=== PATIENT | male | born 1950 | race Caucasian/White ===

== ENCOUNTER → 2017-03-09 | Outpatient (CLI) | payer OTHER ==
--- NOTE | 2017-03-09 14:40 | MAM ---
History: Bilateral breast asymmetry. DATE OF SERVICE: 03/09/2017 Services provided: Full field digital bilateral mammography. Directed bilateral breast sonography. FINDINGS: Baseline examination from 10/24/2016 is reviewed. Mammographically suspicious 2.9 cm mass left breast 1:00 is associated with architectural distortion and microcalcifications. Nodular asymmetry on the screening evaluation more peripherally becomes more subtle on the spot compression view where this area is visualized along the edge of the paddle. Right breast asymmetry partially effaces with a nodular breast parenchymal contour. No associated distortion. Microcalcifications are distributed diffusely throughout the right upper quadrant segment. Directed ultrasound exam bilaterally is performed. Sonography of the upper one half of the right breast tissue confirms normal fibroglandular changes. No sonographically suspicious finding. Palpable ridge left breast corresponds to a sonographically suspicious 3.3 x 2.8 cm angular mass with posterior acoustic shadowing. Internal microcalcifications are demonstrated with the sonographic lesion 2 cm from the nipple left breast 1:00. Medial and superior to the lesion is a second 8 mm nodule, left breast 12:00. Sonography of the left axilla demonstrates no abnormality. The periareolar breast also is sonographically unremarkable. IMPRESSION: Suspicious exam. Mammographically and sonographically suspicious 3.3 cm mass left breast with multifocal disease suspected. No sonographic or mammographic evidence for malignancy on the right. If prior films are obtained, an addendum report can be issued to document stability to the right breast. Recommendation: Ultrasound-guided needle sampling. The findings and recommendations were discussed with the patient. BIRAD CATEGORY: 5 HIGHLY SUSPICIOUS FINDINGS Electronically signed by: Qian Vaughan MD 03/09/2017 2:36 PM CDT
== END | disposition home or self-care (01) ==
LOC: MAMMO 13:00
PROVIDERS: ATTEND Family Medicine
DX: N63 Unspecified lump in breast (principal)

== ENCOUNTER → 2017-03-17 | Outpatient (CLI) | payer OTHER, SELFPAY ==
--- NOTE | 2017-03-17 11:33 | OP ---
DATE OF PROCEDURE: 03/17/17 PREOPERATIVE DIAGNOSIS: 1. Left breast mass times 2. POSTOPERATIVE DIAGNOSIS: 1. Left breast mass times 2. PROCEDURE: 1. Needle core biopsy of breast mass, 12 o'clock and 11 o'clock, left breast. SURGEON: Neil Martinez MD. INDUSTRIAL TECHNOLOGY EDUCATION TEACHER: None. ANESTHESIA: Local infiltration of 1% lidocaine. INDICATION: The patient is a 66-year-old female who on routine mammography was found to have a calcified irregular mass at 12 o'clock and another small mass at 11 o'clock. She was brought to the Ultrasound Suite today for needle core biopsy, sonographically guided, after the risks, benefits and alternatives to the procedure were discussed and accepted. FINDINGS: Multiple cores were taken from the larger mass at 12 o'clock. Three cores were taken from the mass at 11 o'clock. Pathology is pending. PROCEDURE: The patient was placed in the supine position with the left shoulder elevated with a pillow. The left arm was extended. The breast was examined with the ultrasound device. The lesions were identified. The breast lateral to the ultrasound probe was prepped with Betadine and draped. Local infiltration of anesthesia was obtained with 1% lidocaine. A stab wound was made with a 15 blade and then under ultrasound guidance, multiple passes were taken as noted with the specimens sent for pathologic evaluation. Hemostasis was obtained with pressure and a single suture of 4-0 Prolene. Sterile pressure dressing was applied. The patient tolerated the procedure well. Estimated blood loss was less than 5 mL. #[id number] [facility]
--- NOTE | 2017-03-17 17:11 | US ---
History: Left breast mass. Ultrasound-guided needle biopsy: A total of 13 images are submitted and demonstrate needle traversing the left breast mass at 12:00 in the left breast. No complication is shown on the images provided. The biopsy was performed by Dr. Martinez. IMPRESSION: Technically successful ultrasound-guided needle sampling left breast mass. Electronically signed by: Qian Vaughan MD 03/17/2017 5:11 PM CDT
== END | disposition home or self-care (01) ==
LOC: EDSEX 09:08 → US 09:08
PROVIDERS: ATTEND Surgery
DX: N63 Unspecified lump in breast (principal)

== ENCOUNTER → 2017-03-30 | Outpatient (CLI) | payer OTHER, SELFPAY ==
--- NOTE | 2017-03-30 11:39 | NM ---
EXAM DESCRIPTION: Bone Scan, Whole Body CLINICAL HISTORY: BREAST CANCER COMPARISON: None Available. RADIOPHARMACEUTICAL: 28 mCi technetium 99 M MDP IV FINDINGS: Mild abnormal increased uptake is observed in the shoulders thoracic spine and knees consistent with degenerative arthritis. Arthritic changes are also observed in the wrists and ankles. No abnormal increased uptake is seen to suggest bony metastatic disease. IMPRESSION: 1. Negative for metastatic disease. Electronically signed by: Fabio Sherman MD 03/30/2017 11:39 AM CDT
--- NOTE | 2017-03-30 15:35 | RAD ---
EXAM DESCRIPTION: Chest,2 Views CLINICAL HISTORY: 66 years Female, CARCINOMA LEFT BREAST COMPARISON: None Available TECHNIQUE: PA/lateral FINDINGS: There is no cardiac or pulmonary abnormality. The lungs are clear. There is no effusion. IMPRESSION: 1. Normal two-view chest. Electronically signed by: Fabio Sherman MD 03/30/2017 3:35 PM CDT
== END | disposition home or self-care (01) ==
LOC: NM 08:21
PROVIDERS: ATTEND Surgery
DX: C50.912 Malignant neoplasm of unspecified site of left female breast (principal)

== ENCOUNTER 2017-03-31 05:32 | Day surgery (SDC) | payer OTHER ==
[2017-03-31] MEDS ORDERED: ceFAZolin SODIUM 1 GM VIAL ONE (06:50)
[2017-03-31] MEDS ORDERED: SODIUM CHL 0.9% 100ML MINI-BAG 100 ML IVPB ONE (06:50)
[2017-03-31] MEDS ORDERED: LACTATED RINGERS 1,000 ML ONE (06:53)
[2017-03-31] MEDS ORDERED: LIDOCAINE 1% 10 ML VIAL INJ ONE (07:00)
[2017-03-31] MEDS ORDERED: PROPOFOL 200 MG/20 ML VIAL IV ONE (07:00)
[2017-03-31] MEDS ORDERED: SODIUM BICARBONATE VIAL 50 MEQ/50 ML VIAL ONE (08:09)
[2017-03-31] MEDS ORDERED: SODIUM CHLORIDE 0.9% 50 ML VIAL ONE (08:09)
[2017-03-31] MEDS ORDERED: HEPARIN SODIUM 100 U/ML 5 ML SYG IV ONE (08:09)
[2017-03-31] MEDS ORDERED: LIDOCAINE 1% 50 ML VIAL INJ ONE (08:09)
[2017-03-31] MEDS ORDERED: fentaNYL CITRATE INJ 50 MCG/ML AMP ONE (09:08)
--- NOTE | 2017-03-31 10:36 | RAD ---
EXAM DESCRIPTION: Chest,1 View CLINICAL HISTORY: s/p port placement FINDINGS/ IMPRESSION: Right subclavian Port-A-Cath placement distal tip in the superior vena cava. No pneumothorax or other complication Normal cardiomediastinal silhouette. The lungs are clear Electronically signed by: Joel Ignacio MD 03/31/2017 10:36 AM CDT
--- NOTE | 2017-03-31 10:37 | OP ---
DATE OF PROCEDURE: 03/31/17 PREOPERATIVE DIAGNOSIS: 1. Biopsy-proven carcinoma of the left breast. POSTOPERATIVE DIAGNOSIS: 1. Biopsy-proven carcinoma of the left breast. PROCEDURE: 1. Insertion of right subclavian venous access port using fluoroscopy. SURGEON: Neil Martinez MD TALENT DEVELOPMENT CONSULTANT: None ANESTHESIA: Local infiltration of 1% lidocaine and IV sedation by Anesthesia. INDICATION: The patient is a 66-year-old female who was found to have a left breast mass which was suspicious on mammography. She underwent needle core biopsy of both the mass and a second mass in the same breast. Both are ER/GA negative and the large mass is HER2/freddy positive. She will receive the neoadjuvant chemotherapy. She was brought to the Surgical Suite today for insertion of the port after the risks, benefits and alternatives to the procedure were discussed and accepted. FINDINGS: The guidewire was first identified going down into the superior vena cava and then back up into the left subclavian. However, it was maneuvered under fluoroscopy and good position was shown at the last and then the catheter was identified in the superior vena cava after it was introduced using fluoroscopy. Chest x-ray is pending. PROCEDURE: The patient was brought to the Surgical Suite and placed in supine position in the usual manner. She was then prepped and draped in the usual manner. Surgical time-out was taken. The infraclavicular area was infiltrated with local anesthesia. After multiple passes, finally venous blood was obtained and this was after we called for ultrasound, but they had not shown up. When venous blood was accessed with a 22 gauge needle, then the 18 gauge thin wall needle was introduced, venous blood was obtained, and a guidewire was introduced with some difficulty. The needle was removed. The guidewire had been advanced to about 35 cm without any ectopy. A towel was placed over the field and the C-arm was used to identify where the guidewire was and it was looped across in the left subclavian vein. It was gently retracted under fluoroscopy guidance and then advanced into the superior vena cava without difficulty. When this was done, the towel was removed. C-arm was removed at this point. The port pocket was performed in the usual manner with local infiltration of anesthesia, sharp knife, electrocautery, and blunt dissection. The port was sutured in the pocket in the usual manner with interrupted 3-0 Prolene simple sutures. The catheter was tunneled from the port pocket to the insertion site, then cut to appropriate length. The dilator introducer was then introduced over the guidewire. The guidewire and dilator were removed. The catheter was introduced through the introducer and the introducer was removed in the usual manner. At this point, the port was accessed, easily aspirated, and then flushed, first with heparinized saline and then with heplock. The Decker needle was removed. The port pocket incision was closed with the subcutaneous tissues reapproximated with interrupted 3-0 Vicryl sutures and the skin edges approximated with 4-0 Vicryl subcuticular sutures, benzoin and Steri-Strips. The insertion site incision was closed with 4-0 Vicryl subcuticular sutures, benzoin and Steri-Strips. A sterile dressing was applied. The patient was then taken to the Ambulatory Unit in stable condition. Estimated blood loss was approximately 25 mL. All sponge, needle and instrument counts were correct. #[id number] [facility]
[2017-03-31] MEDS ORDERED: HYDROcodone 5MG/APAP 325MG 1 EA TAB ONE (10:48)
[2017-03-31 11:47] VITALS: BP 87/60; TEMP 97; O2SAT 99
== END 2017-03-31 11:30 | disposition home or self-care (01) ==
LOC: AMB 05:32
PROVIDERS: ATTEND Surgery
DX: C50.912 Malignant neoplasm of unspecified site of left female breast (principal); Z79.899 Other long term (current) drug therapy
CPT/HCPCS: 00532; 36561; 71010; 76000; A4216; J0690; J1642; J3010; J3490; J7050; J7120

== ENCOUNTER → 2017-07-18 | Outpatient (CLI) | payer MEDICARE, OTHER ==
--- NOTE | 2017-07-19 02:55 | CT ---
EXAM DATE: 07/18/2017 2:02 PM CDT. PROCEDURE: CT SINUSES WITHOUT THEN WITH IV CONTRAST. INDICATION: HEADACHE, RECURRENT SINUSITIS. COMPARISON: None. TECHNIQUE: Axial CT images of the face were obtained without intravenous contrast. Coronal and sagittal reformatted images are provided. This exam was performed according to our departmental dose-optimization program which includes use of Automated Exposure Control, adjustment of the mA and/or kV according to patient size and/or use of iterative reconstruction technique. FINDINGS: The frontal sinuses and frontal sinus drainage pathways are well aerated. The ethmoid sinuses, sphenoid sinuses, sphenoid ostia, and sphenoethmoidal recesses are patent as well. There is mild mucosal thickening within the bilateral maxillary sinuses. There may be a small amount of layering fluid within the right maxillary sinus. The maxillary ostia are patent. Mild rightward deviation of the nasal septum. Unremarkable aerodigestive tract. Dental amalgam causes streak artifact. Unremarkable major salivary glands. Major neck vessels are patent. The orbits are unremarkable. The intracranial contents demonstrate no significant abnormalities. IMPRESSION: Mild mucosal thickening of the maxillary sinuses. A small amount of layering fluid is seen in the right maxillary sinus and can be seen with acute sinusitis. The remainder of the paranasal sinuses are clear. No outflow tract obstruction. Electronically signed by: Bryn Celis MD 07/19/2017 2:53 AM CDT
--- NOTE | 2017-07-19 02:56 | CT ---
EXAM DATE: 07/18/2017 2:02 PM CDT. PROCEDURE: CT HEAD WITHOUT IV CONTRAST. INDICATION: HEADACHE, RECURRENT SINUSITIS. COMPARISON: None. TECHNIQUE: Axial CT images of the head were acquired without intravenous contrast. This exam was performed according to our departmental dose-optimization program which includes use of Automated Exposure Control, adjustment of the mA and/or kV according to patient size and/or use of iterative reconstruction technique. FINDINGS: No acute intracranial hemorrhage. Vargas white matter differentiation is preserved. No mass effect or midline shift. No hydrocephalus. Unremarkable orbits. Mastoid air cells are clear. Intact calvarium. IMPRESSION: Unremarkable CT of the head. Electronically signed by: Bryn Celis MD 07/19/2017 2:55 AM CDT
== END | disposition home or self-care (01) ==
LOC: CT 13:53
PROVIDERS: ATTEND Internal Medicine Hematology & Oncology
DX: C50.412 Malignant neoplasm of upper-outer quadrant of left female breast (principal); G43.C0 Periodic headache syndromes in child or adult, not intractable; J01.81 Other acute recurrent sinusitis

== ENCOUNTER 2017-09-10 17:36 | Emergency (ER) | payer MEDICARE, OTHER ==
[2017-09-10 17:58] VITALS: TEMP 98.7
[2017-09-10] MEDS ORDERED: IPRATROPIUM/ALBUTEROL 3 ML VIAL NEB ONE ×3 (18:03→20:50)
--- NOTE | 2017-09-10 18:09 | ED.PDOC ---
History of Present Illness - General Chief Complaint: Respiratory Problem Stated Complaint: shortness of breath Time Seen by Provider: 09/10/17 17:38 Source: patient, RN notes reviewed, Vital Signs reviewed, family - Exam Limitations: no limitations - History of Present Illness Initial Comments: Patient comes in with c/o SOB that began ~5 days ago. She is undergoing treatment for breast cancer. She has finished chemo and is getting ready for surgery. She was having chronic sinus issues and had sinus surgery on 09/06/17. Prior to surgery she received a breathing treatment which helped a lot. Since yesterday she has been using a neighbors nebulizer. Provides relief for ~ 4 hours but then the SOB returns. Her chest is feeling tight with this. No nausea or diaphoresis. SOB worsens with any activity. Timing/Duration: days - 5 Severity: severe Activities at Onset: none Possible Cause: no prior episodes Improving Factors: medication - Nebulizer treatments Worsening Factors: movement Associated Symptoms: chest pain Allergies/Adverse Reactions: Allergies NO KNOWN ALLERGY Allergy (Verified 03/31/17 08:13) Home Medications: Ambulatory Orders Sertraline HCl [Zoloft] 50 mg PO BEDTIME 03/31/17 Cefdinir 300 mg PO BID #14 cap 09/10/17 HYDROcodone 7.5MG/APAP 325MG [Lutz 7.5/325] 1 tab PO PRN 09/10/17 Ipratropium/Albuterol (ER Disp [Duoneb ER DISPENSE] 3 ml NEB Q4H PRN #2 vial 09/10/17 Ipratropium/Albuterol [Duoneb] 3 ml NEB Q4HR PRN #25 vial 09/10/17 Review of Systems - Review of Systems Constitutional: States: fever, malaise. Denies: chills EENTM: States: other - 4 days s/p sinus surgery - feels better in regards to that. Respiratory: States: short of breath. Denies: cough Cardiology: States: chest pain - Tightness - upper, mid chest Gastrointestinal/Abdominal: States: no symptoms reported Musculoskeletal: States: no symptoms reported Skin: States: no symptoms reported Neurological: States: no symptoms reported All other Systems: No Change from Baseline Past Medical History (General) - Patient Medical History Hx Congestive Heart Failure: No Hx Diabetes: No Hx Cancer: Yes - Breast Surgical History: Hysterectomy - Vaccination History Hx Influenza Vaccination: No Hx Pneumococcal Vaccination: Yes - Social History Hx Tobacco Use: No Family Medical History - Family History Mother Family History: Unknown Living Status: Unknown Physical Exam - Physical Exam General Appearance: Alert, Obvious distress - obviously SOB, Well Developed, Well Groomed, Well Hydrated, Well Nourished Eyes, Ears, Nose, Throat Exam: normal ENT inspection Neck: full range of motion, supple, normal inspection Respiratory: lungs clear, normal breath sounds, no respiratory distress, no accessory muscle use Cardiovascular/Chest: normal peripheral pulses, regular rate, rhythm, no gallop , no murmur Extremity: normal range of motion, normal inspection Neurologic: alert, normal mood/affect, oriented x 3 Skin Exam: normal color, warm/dry Comments: Vital Signs 09/10/17 09/10/17 09/10/17 17:47 18:04 18:14 Temperature 98.7 F Pulse Rate 87 Pulse Rate [ 91 H Left Brachial] Respiratory 20 20 16 Rate Blood Pressure 130/83 [Left Arm] O2 Sat by Pulse 100 100 Oximetry Progress - Progress Progress: 09/10/17 18:29 Feeling better after Duoneb 09/10/17 20:02 Still feeling well. Breathing is good. Awaiting CT results 09/10/17 20:47 Will give dose of Cefdinir prior to d/c Will send home with a couple doses of Duoneb and send Rx to pharmacy - Results/Orders Results/Orders: Laboratory Tests 09/10/17 09/10/17 09/10/17 17:49 17:49 17:49 WBC 14.7 H RBC 3.21 L Hgb 10.7 L Hct 31.8 L MCV 99.2 H MCH 33.3 H MCHC 33.6 RDW 16.7 H Plt Count 316 MPV 6.9 L Absolute Neuts (auto) 12.70 H Absolute Lymphs (auto) 1.40 Absolute Monos (auto) 0.50 Absolute Eos (auto) 0.10 Absolute Basos (auto) 0.00 Neutrophils % 85.8 H Lymphocytes % 9.8 L Monocytes % 3.6 Eosinophils % 0.5 L Basophils % 0.3 D-Dimer, Quantitative 307 H* Sodium 137 Potassium 3.9 Chloride 105 Carbon Dioxide 24 Anion Gap 11.9 L BUN 14 Creatinine 0.88 BUN/Creatinine Ratio 15.9 Random Glucose 114 H Serum Osmolality 275.2 Calcium 9.1 Total Bilirubin 0.6 AST 23 ALT 30 Alkaline Phosphatase 170 H Creatine Kinase 102 CK-MB (CK-2) 0.7 CK-MB (CK-2) % Not Reportable Troponin I < 0.02 B-Natriuretic Peptide 10.3 Serum Total Protein 7.1 Albumin 3.5 Globulin 3.6 H Albumin/Globulin Ratio 1.0 L - EKG/XRAY/CT XRAY: chest - No acute changes per Radiologist CT Ordered: Yes - CTA Chest:Nodular infiltrate RUL, No PE per Rad Departure - Departure Clinical Impression: Pneumonia Qualifiers: Pneumonia type: due to unspecified organism Laterality: right Lung location: upper lobe of lung Qualified Code(s): J18.1 - Lobar pneumonia, unspecified organism Time of Disposition: 20:48 Disposition: Discharge to Home or Self Care Condition: Good Departure Forms: ED Discharge - Pt. Copy, Patient Portal Self Enrollment Instructions: DI for Pneumonia -- Adult Diet: resume usual diet Activity: increase activity as tolerated Referrals: Blake Conteh MD [Primary Care Provider] - 1-2 Weeks Prescriptions: Ipratropium/Albuterol [Duoneb] 3 ml NEB Q4HR PRN #25 vial PRN Reason: Shortness Of Breath Cefdinir 300 mg PO BID #14 cap Ipratropium/Albuterol (ER Disp [Duoneb ER DISPENSE] 3 ml NEB Q4H PRN #2 vial PRN Reason: Shortness Of Breath Home Medications: Ambulatory Orders Sertraline HCl [Zoloft] 50 mg PO BEDTIME 03/31/17 Cefdinir 300 mg PO BID #14 cap 09/10/17 HYDROcodone 7.5MG/APAP 325MG [Lutz 7.5/325] 1 tab PO PRN 09/10/17 Ipratropium/Albuterol (ER Disp [Duoneb ER DISPENSE] 3 ml NEB Q4H PRN #2 vial 09/10/17 Ipratropium/Albuterol [Duoneb] 3 ml NEB Q4HR PRN #25 vial 09/10/17
--- NOTE | 2017-09-10 18:40 | RAD ---
EXAM DESCRIPTION: Chest,1 View CLINICAL HISTORY: SOB COMPARISON: 03/31/2017 FINDINGS: Subcutaneous Central catheter tip is at the mid SVC. Cardiac silhouette is within normal limits. There is no focal parenchymal or pleural disease. Visualized osseous structures are within normal limits. IMPRESSION: No evidence of acute cardiopulmonary disease. Electronically signed by: Tejinder Hoover 09/10/2017 6:39 PM COMMUNICATION ASSISTANT
[2017-09-10] MEDS ORDERED: HYDROcodone 7.5MG/APAP 325MG 1 EA TAB PO ONE (18:56)
--- NOTE | 2017-09-10 20:34 | CT ---
PROCEDURE: CTA Chest CLINICAL HISTORY: 67 years Female SOB w/ elevated D-Dimer COMPARISON: None. TECHNIQUE: Contiguous axial images obtained through the chest during the infusion of IV contrast. Reformatted images obtained. MIP reformatted images obtained. This exam was performed according to our department optimization program which includes automated exposure control, adjustment of the mA and/or kv according to patient size and/or use of iterative reconstruction technique. FINDINGS: Right chest port tip in the mid SVC. The visualized upper abdominal organs appear unremarkable. No pericardial effusion. The mediastinum appears unremarkable. There is a mildly prominent right hilar lymph node. No evidence for thoracic aortic dissection. No pulmonary emboli are identified. Slightly nodular infiltrate in the right upper lobe which could be from an infectious or inflammatory process. Linear atelectatic changes in the lower lungs more pronounced on the right. No pleural effusions. There is a calcified granuloma in the right upper lung. Degenerative changes in the spine. There is exaggeration of the normal upper thoracic curvature. IMPRESSION: No pulmonary emboli are identified. Slightly nodular infiltrate in the right upper lobe which could be from an infectious or inflammatory process. Linear atelectatic changes in the lower lungs more pronounced on the right. Electronically signed by: Abel Duarte MD 09/10/2017 8:33 PM ROCKET MOTOR TESTER
[2017-09-10] MEDS ORDERED: CEFDINIR 300 MG CAP PO ONE (20:45)
[2017-09-10 21:20] VITALS: BP 116/65; O2SAT 98
== END 2017-09-10 21:20 | disposition home or self-care (01) ==
LOC: ER 17:36
DX: J18.1 Lobar pneumonia, unspecified organism (principal); Z85.3 Personal history of malignant neoplasm of breast
CPT/HCPCS: 36415; 71010; 71275; 80053; 82550; 82553; 83880; 84484; 85025; 85379; 93005; 94640; J7620

== ENCOUNTER → 2017-09-14 | Outpatient (CLI) | payer MEDICARE, OTHER | END | disposition home or self-care (01) | LOC: GMAB 10:46 | PROVIDERS: ATTEND Family Medicine | DX: R06.02 Shortness of breath (principal) ==

== ENCOUNTER 2017-10-16 05:40 | Inpatient (IN) | payer MEDICARE, OTHER ==
[2017-10-16] MEDS ORDERED: ceFAZolin SODIUM 1 GM VIAL ONE (06:35)
[2017-10-16] MEDS ORDERED: SODIUM CHL 0.9% 100ML MINI-BAG 100 ML IVPB ONE (06:35)
[2017-10-16] MEDS ORDERED: LACTATED RINGERS 1,000 ML ONE ×2 (06:35→11:36)
[2017-10-16] MEDS ORDERED: PROPOFOL 200 MG/20 ML VIAL IV ONE (10:00)
[2017-10-16] MEDS ORDERED: ONDANSETRON INJ 4 MG/2 ML VIAL IV ONE (10:00)
[2017-10-16] MEDS ORDERED: METOCLOPRAMIDE HCL INJ 10 MG/2 ML VIAL IV ONE (10:00)
[2017-10-16] MEDS ORDERED: fentaNYL CITRATE INJ 50 MCG/ML AMP ONE (10:41)
[2017-10-16] MEDS ORDERED: MIDAZOLAM INJ 2 MG/2 ML VIAL ONE (10:42)
--- NOTE | 2017-10-16 11:24 | HP ---
CHIEF COMPLAINT: Biopsy-proven carcinoma of the left breast status post neoadjuvant chemotherapy. HISTORY OF PRESENT ILLNESS: The patient is a 67-year-old female who had a left breast mass. Needle core biopsy revealed a HER2 positive tumor and a second tumor, two separate primaries. She has undergone neoadjuvant chemotherapy and had a good response. She was brought to the Surgical Suite today for mastectomy after the risks, benefits and alternatives to the procedure were discussed and accepted by the patient. PAST MEDICAL HISTORY: 1. Depression. 2. Seasonal allergies. 3. Sinus infections and underwent recent sinus surgery. 4. Chronic low back pain. PAST SURGICAL HISTORY: 1. Hysterectomy. 2. section times 3. 3. Right sided venous access catheter. 4. Bilateral myringotomy tubes. CURRENT MEDICATIONS: 1. Calcium supplement. 2. Sertraline. ALLERGIES: NO KNOWN DRUG ALLERGIES. FAMILY HISTORY: Noncontributory. REVIEW OF SYSTEMS: Other than the routine problems associated with her chemotherapy, there has been no significant weight loss, no headaches, no urinary tract symptoms, no recent nausea, vomiting or diarrhea. PHYSICAL EXAMINATION: GENERAL: The patient is awake, alert, cooperative, in no acute distress. VITAL SIGNS: The patient is currently afebrile, normotensive. HEENT: She has minimal hair regrowth after chemotherapy, which was white and curly. Mucous membranes moist. Sclerae nonicteric. NECK: Without adenopathy. She has no supraclavicular or axillary adenopathy identified. BREAST: The right breast is without mass, skin change or nipple discharge. The left breast shows minimal fullness at the 12 o'clock position, but the discrete mass that was there previously is not identified. No skin change or nipple discharge was identified. CHEST: Equal breath sounds bilaterally. HEART: Regular rate and rhythm. ABDOMEN: Soft, nontender, without organomegaly or mass. PELVIC/RECTAL: Deferred. EXTREMITIES: Without cyanosis, clubbing or edema. LABORATORY: Clear urine with specific gravity 1.025. Hemoglobin 12.0, white count 6.1, 65% neutrophils, 277,000 platelet count. Creatinine 0.76, calcium 9.5, potassium 4.0. Liver function tests are all within normal limits. EKG was unremarkable with a normal sinus rhythm. Chest x-ray was clear. ASSESSMENT: 1. Biopsy-proven carcinoma of the left breast, which is HER2/freddy positive, status post neoadjuvant chemotherapy. PLAN: The patient is admitted for mastectomy after general anesthesia. #[id number] MTDD
[2017-10-16] MEDS ORDERED: ONDANSETRON INJ 4 MG/2 ML VIAL IV PRN (13:44)
[2017-10-16] MEDS ORDERED: HYDROcodone 5MG/APAP 325MG 1 EA TAB PO PRN ×2 (13:44→19:41)
[2017-10-16] MEDS: LACTATED RINGERS 1,000 ML IVS PRN ×2 (14:59→20:33)
--- NOTE | 2017-10-16 15:06 | OP ---
DATE OF PROCEDURE: 10/16/17 PREOPERATIVE DIAGNOSIS: 1. Biopsy-proven carcinoma of the left breast status post neoadjuvant chemotherapy. POSTOPERATIVE DIAGNOSIS: 1. Biopsy-proven carcinoma of the left breast status post neoadjuvant chemotherapy. PROCEDURE: 1. Left modified radical mastectomy. SURGEON: Neil Martinez MD. MANAGER INTEL: None. ANESTHESIA: General laryngeal mask. INDICATION: The patient is a 67-year-old female who had developed a left breast mass in the 12 o'clock position. Radiologic evaluation revealed two masses suspicious. 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 She underwent neoadjuvant chemotherapy with significant reduction, in fact, a clinical complete response and after the risks, benefits and alternatives to the surgery were discussed and accepted, the patient was brought to the Surgical Suite today for mastectomy. FINDINGS: There was some lymphadenopathy, but not obviously hard or malignant, but pathology is pending. PROCEDURE: After adequate general laryngeal mask anesthesia was obtained, the patient was prepped and draped in the usual sterile manner. Surgical time-out was taken. At this point, an elliptical incision was fashioned around the nipple and areolar complex, first with a marking pen, the the sharp knife was used to incise the upper flap. The upper flap was then taken using electrocautery after [place] clamps were placed on the skin edge. Dissection was carried medially to the sternum superiorly to the clavipectoral fascia and into the axilla. When this was done, hemostasis was obtained with electrocautery and a moist sponge was placed under the flap. The inferior flap was taken in a like manner down to the rectus sheath inferiorly. When this was done, the retractors were placed under the superior flap and the breast was taken down off the chest wall, taking the pectoralis fascia using sharp knife and electrocautery. The dissection was carried down to the medial aspect and then the breast was taken off the chest wall from medial to lateral. At this point, the axilla was explored. Dissection was carried superiorly to the axillary vein and posteriorly to the long thoracic nerve of Sky and thoracodorsal bundle. The tissue was then dissected inferiorly, leaving the nerves intact and resected as en bloc resection. The specimen was sent for pathological evaluation. The wound was then irrigated copiously with saline. Hemostasis was noted to be adequate. Two drains were placed, one on the chest wall and the axilla through stab wound in the inferior flap laterally. They were sutured in place with 3-0 Nylon ligatures. The subcutaneous tissue was then closed with running 3-0 Vicryl suture from end to end. At this point, the wound was irrigated through the incision prior to tying the last knot and then aspirated through the drains. The suture was tied and cut. The skin edges were approximated with a skin stapler. Sterile pressure dressing was applied. The patient was then awakened and taken to the Recovery Room in stable condition. Estimated blood loss was no greater than 250 to 300 mL. All sponge , needle and instrument counts were correct. #[id number] [facility]
[2017-10-16] MEDS ORDERED: MORPHINE SULFATE INJ 10 MG/ML VIAL ONE (15:11)
[2017-10-16] MEDS ORDERED: SODIUM CHLORIDE 0.9% (FLUSH) 10 ML SYG IV PRN (15:12)
[2017-10-16] MEDS: MORPHINE SULFATE INJ 10 MG/ML VIAL IV PRN ×5 (15:14→22:30)
[2017-10-16] MEDS ORDERED: IV SET AND CAP CHANGE INJ INJ SCH (15:30)
[2017-10-16] MEDS ORDERED: BENZONATATE PERLES 100 MG CAP PO PRN (19:40)
--- NOTE | 2017-10-16 20:24 | CONS ---
DATE OF CONSULTATION: 10/16/17 HISTORY OF PRESENT ILLNESS: This 67 year-old white female was admitted to the hospital earlier this morning for an elective left modified radical mastectomy. A significant mass in the left breast was noted on mammography in the past and biopsy-proven carcinoma of the left breast resulted in neoadjuvant chemotherapy which she completed 08/17/17. She had fairly good results with tumor size being reduced and she went to the next level of intensity to remove the disease process by having mastectomy performed by Dr. Martinez earlier today. She tolerated it quite well. In the immediate postoperative period she did have some wheezing upon respiratory efforts. She had an airway mask instead of an endotracheal intubation. She has had a history of wheezing even at home for which she takes medication nebulizers which appear to be Combivent, including Atrovent and Albuterol medications. They seem to help for a period of time on tightness in her chest. This tightness in the chest reached a crisis the first of September when she came to the Emergency Room and had a normal chest x-ray, and no pulmonary emboli noted on CTA of the chest. She was treated for a possible pneumonia process. She has had significant seasonal allergies which may also be contributing to some of her wheezing. At this time, she is not short of breath and the wheezing has eased off. Questioning does reveal that she does have a medication nebulizer with compressor unit as well as the DuoNeb medication at home and she may benefit by having a few Albuterol monotherapy at home as well and save the DuoNeb for a more severe wheezing episode. PAST MEDICAL HISTORY: 1. Left breast cancer. 2. Seasonal allergies. 3. Recent sinusitis requiring surgical treatment. 4. Chronic low back pain. PAST SURGICAL HISTORY: 1. Sinus surgery recently. 2. Ear drum surgery. 3. Three section. 4. Uterus was removed in 2001. 5. Left mastectomy earlier today. CURRENT MEDICATIONS: Please refer to nurses' notes for a list of home medications verified to be taken at home. ALLERGIES: NONE KNOWN. FAMILY HISTORY: Positive for transient ischemic attacks, coronary artery disease and cancer. 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 She has never smoked. REVIEW OF SYSTEMS: No significant weight change. No fever or chills. HEENT: She has had recent sinus surgery as well as myringotomy surgery of the ears, no doubt a complication of some of her allergies and possibly contributed to by some of her chemotherapy now stopped. LUNGS: Significant shortness of breath approximately 5 weeks ago. Went to the Emergency Room. At the present time, no significant shortness of breath is noted. CARDIOVASCULAR: No chest pains except postoperatively as it relates to the dissection of the chest wall, especially on the left and to the midline structures. GASTROINTESTINAL: Appetite is fairly good. Last bowel movement was yesterday. No blood in the stools. GENITOURINARY: No dysuria. NEUROLOGIC: Chronic sinus headaches. No focal weakness. PHYSICAL EXAMINATION: VITAL SIGNS: Afebrile, pulse 75, blood pressure 118/75, pulse oximetry 96% on room air. Weight is 86.2 kilos, stated weight, not measured. GENERAL: The patient is awake, alert and oriented, in no acute distress. A compression dressing to the chest is in place and drainage is noted into the drain lines with the little vacuum bulbs attached. NECK: Supple. CHEST: Lungs are generally clear to auscultation though difficult to auscultate under the pressure dressings. HEART: Tones are regular without any significant gallops. ABDOMEN: Soft. No organomegaly, masses or tenderness. EXTREMITIES: Well formed. No significant reduction in range of motion. NEUROLOGIC: No focal neurological deficits. The patient is awake, alert and oriented, and communicative. LABORATORY: Last CBC was performed on 10/13/17 that showed hemoglobin 12, white count 6,100. Chemistry showed potassium 4, BUN 25, creatinine 0.76, glucose 111. Liver enzymes, proteins normal. Urinalysis is clean. No cultures obtained. Last chest x-ray was within normal limits at her last Emergency Room visit of approximately 5 weeks ago. DIAGNOSES ON ADMISSION: 1. Immediate postoperative day zero left radical simple mastectomy for diagnostic proven breast cancer on the left after having received neoadjuvant chemotherapy completed 08/17/17. 2. Possible reversible airway disease possibly aggravated by the chemotherapy versus seasonal allergies. Recent sinus surgery possibly as a complication of some of the allergies and the chemotherapy. 3. Recent myringotomy surgery again as a complication associated with her sinus infections. 4. Chronic low back pain. PLAN: Will continue close observation by Dr. Martinez until the patient is stable to be able to return home and have continued outpatient management. Suggest continuation at least 3 times a day of her medication nebulizers upon returning home. She will be given an Albuterol prescription to be used in her medication nebulizer and save the DuoNeb ampules for a time when her wheezing is especially severe. Continue with close observation with Dr. Conteh in the clinic and with Dr. Martinez in the clinic as well postoperatively. #[id number] [facility]
[2017-10-16] MEDS: ALBUTEROL SULFATE 2.5 MG/3 ML VIAL NEB SCH (22:15)
[2017-10-16] MEDS: SERTRALINE HCL 50 MG TAB PO SCH (22:31)
[2017-10-17] MEDS: MORPHINE SULFATE INJ 10 MG/ML VIAL IV PRN ×3 (02:01→17:10)
[2017-10-17] MEDS: PANTOPRAZOLE SODIUM TAB 40 MG PO SCH (06:20)
[2017-10-17] MEDS: ALBUTEROL SULFATE 2.5 MG/3 ML VIAL NEB SCH ×3 (07:18→20:19)
[2017-10-17] MEDS: LACTATED RINGERS 1,000 ML IVS PRN (08:34)
[2017-10-17] MEDS: ENOXAPARIN SODIUM 40 MG/0.4 ML SYG SUBCU SCH (09:22)
[2017-10-17] MEDS: HYDROcodone 10MG/APAP 325MG 1 EA TAB PO PRN ×2 (14:43→21:20)
--- NOTE | 2017-10-17 18:39 | PN ---
DATE: 10/17/17 SUBJECTIVE: The patient is lying in the bed and has been able to get up and ambulate in the hallway several times today. In many ways, she feels more alert with less pain in the region of the left mastectomy compared to yesterday. Today is day 1 postoperative. No significant wheezing. She has tolerated the medication nebulizers well and will continue them at home on an as needed basis. OBJECTIVE: See vitals. Still with the discomfort in the right upper chest in the region of the port which has been present for some time, but is slowly getting better. She has had some discomfort when the bulb for the suction is milked at the operative site, but that is becoming less of a discomfort today compared to last evening. LUNGS: Otherwise clear. HEART: Tones regular. ABDOMEN: Soft. Dr. Martinez is advancing her diet progressively as tolerated. Increased activity encouraged. ASSESSMENT: 1. Postoperative day #1 left simple radical mastectomy for a diagnostic proven breast cancer of the left breast after having received neoadjuvant chemotherapy completed 08/17/17. 2. Possible reversible airway disease having chronically been present possibly aggravated by chemotherapy versus seasonal allergies and noted postoperatively primarily because of the mechanics of the LMA tube and position of the head now doing much better. 3. Recent sinus surgery and myringotomy surgery possibly complications of sinus infections. 4. Chronic low back pain with continued followup in the clinic. PLAN: Dr. Martinez will continue to observe closely and when able to safely return home and continue with outpatient therapy, the patient will be discharged. Reevaluation in the morning will continue. The patient is encouraged to utilize her DuoNeb nebulizers at home and if the wheezing persists, then suggest a prescription for Albuterol unit dose solution for use in her home medication nebulizer compressor unit on a regular basis and use the DuoNeb ampules for more severe episodes of wheezing. Continue observation with Dr. Conteh and with Dr. Martinez in the clinic. #[id number] [facility]
[2017-10-17] MEDS: SODIUM CHLORIDE 0.9% (FLUSH) 10 ML SYG IV SCH (21:20)
[2017-10-17] MEDS: SERTRALINE HCL 50 MG TAB PO SCH (21:20)
[2017-10-18] MEDS: HYDROcodone 10MG/APAP 325MG 1 EA TAB PO PRN ×6 (04:18→22:13)
[2017-10-18] MEDS: PANTOPRAZOLE SODIUM TAB 40 MG PO SCH (06:45)
[2017-10-18] MEDS: ALBUTEROL SULFATE 2.5 MG/3 ML VIAL NEB SCH ×3 (08:59→22:12)
[2017-10-18] MEDS: ENOXAPARIN SODIUM 40 MG/0.4 ML SYG SUBCU SCH (09:03)
[2017-10-18] MEDS: SODIUM CHLORIDE 0.9% (FLUSH) 10 ML SYG IV SCH ×2 (09:04→20:51)
--- NOTE | 2017-10-18 19:47 | PCM.CORE ---
Physician DVT/VTE - Nurse DVT Assessment & Total Each Risk Factor Represents 2 Points: Age 60-74, Major Surgery >45 minutes Each Risk Factor is 1 Point: Obesity (BMI >25) DVT Assessment Score: 5 - 5 or more Very High Risk Treatments: Early Ambulation *, Sequential Compression Device Pharmacological: Enoxaparin 40mg SQ Daily
[2017-10-18] MEDS: SERTRALINE HCL 50 MG TAB PO SCH (20:48)
--- NOTE | 2017-10-18 21:16 | PN ---
DATE: 10/18/17 SUPERVISING PHYSICIAN: Bryn Montes M.D. SUBJECTIVE: The patient has been ambulating. She has had no nausea or vomiting. She did have a mild vagal response with near syncopal episode with a bandage change this morning, but overall she has had good pain control. She continues with breathing treatments and good pulmonary hygiene. OBJECTIVE: VITAL SIGNS: Temperature 98.6, pulse 75, blood pressure 113/56, respirations 16, satting 91 to 94% on room air. I's and O's show a negative balance of 1734 with 2637 in, 4371 out. Weight is 86.1 kg. CHEST: Myke bandage remains in place with J-P drains continuing to show some serosanguinous fluid. Lung sounds are clear bilaterally, just slightly diminished towards the bases. HEART: Regular rate and rhythm. ABDOMEN: Soft, non-tender with positive bowel sounds. NEUROLOGIC: She is alert and oriented times three. EXTREMITIES: No clubbing, cyanosis or edema. LABORATORY: There is no additional laboratory to report. ASSESSMENT: 1. Postoperative day 2 left simple radical mastectomy for diagnostic proven cancer of the left breast having receive neoadjuvant chemotherapy completed on 08/17/17. 2. Possible reversible airway disease having chronically been present previously aggravated by chemotherapy, seasonal allergies and postoperative condition having been intubated with an LMA showing good improvement with pulmonary hygiene and breathing treatments. 3. Recent sinus surgery and myringotomy surgery possibly complications of sinus infections. 4. Chronic low back pain with continued to be followup in the clinic. 5. Near syncopal episode secondary to more likely a vagal response during wound change requiring close monitoring with anticipation of discharging tomorrow. PLAN: Will continue to follow the patient along with Dr. Martinez. Defer all surgical management to Dr. Martinez. Anticipate discharging in the morning with continued encouraged DuoNeb nebulizers at home. The patient does have a medication nebulizer compressor at home. She will need a prescription for Albuterol and DuoNeb as appropriate. Will continue to follow the patient closely until discharge. #[id number] [facility]
[2017-10-19] MEDS: HYDROcodone 10MG/APAP 325MG 1 EA TAB PO PRN ×3 (02:42→12:59)
[2017-10-19] MEDS: PANTOPRAZOLE SODIUM TAB 40 MG PO SCH (06:21)
[2017-10-19] MEDS: ALBUTEROL SULFATE 2.5 MG/3 ML VIAL NEB SCH (07:17)
[2017-10-19] MEDS: SODIUM CHLORIDE 0.9% (FLUSH) 10 ML SYG IV SCH (08:37)
[2017-10-19] MEDS: ENOXAPARIN SODIUM 40 MG/0.4 ML SYG SUBCU SCH (08:37)
[2017-10-19 12:19] VITALS: BP 111/69; TEMP 97.9; O2SAT 93
--- NOTE | 2017-10-20 08:50 | DS ---
SUPERVISING PHYSICIAN: Bryn Montes MD DISCHARGE DIAGNOSIS: 1. Postoperative day 3 left simple radical mastectomy for diagnostic proven cancer of the left breast having received neoadjuvant chemotherapy completed on 08/17/17. 2. Chronic low back pain. 3. Seasonal allergies. REASON FOR HOSPITALIZATION: Ms. Toussaint is a 67-year-old white female who was admitted to the hospital on the morning of 10/16/17 for an elective left modified radical mastectomy. A significant mass in the left breast was noted on mammography in the past and biopsy-proven carcinoma of the left breast resulted in neoadjuvant chemotherapy which she completed 08/17/17. She had fairly good results with tumor size being reduced and she went to the next level of intensity to remove the disease process by having mastectomy performed by Dr. Martinez completed on 10/16/17. LABORATORY: CBC on admission showed white count 6,100. At discharge, it was 6, 600. Hemoglobin and hematocrit were stable and at discharge were 11.3 and 34.1. Platelet count 262,000. Differential within normal limits. Chemistries showed normal electrolytes. BUN 25, creatinine 0.76. Liver functions all within normal limits. Urinalysis preoperatively and postoperatively with only a trace of leukocyte esterase seen on the one performed on 10/17/17, otherwise all within normal limits. MICROBIOLOGY: No specimens submitted. Pathology reports are pending. PROCEDURES: Left modified radical mastectomy performed by Dr. Martinez. Please see his operative note for full details. HOSPITAL COURSE: Ms. Toussaint was admitted on 10/16/17 as noted above for a left modified radical mastectomy for biopsy-proven carcinoma of the left breast status post neoadjuvant chemotherapy. She had surgery performed on 10/16/[address] Martinez and was followed postoperatively through discharge. She was stable in immediate postoperative state and progressed well. She was tolerating a diet and was active, ambulating without any difficulty . Wound dressings were per Dr. Martinez's management. She had two MARYAM drains in place and one was removed prior to discharge by Dr. Martinez. She initially was going to be discharged on , however, during a dressing change, she became quite lightheaded with a vagal response. Therefore, she was kept an additional 24 hours for close observation. She had no recurrence of the vagal episodes or syncope and was felt stable enough to be discharged to continue with management in the outpatient setting. PLAN: Ms. Toussaint was discharged on 10/19/17 with instructions to followup with Dr. Martinez on Monday after discharge. She was to have home health services through [facility] [place]. She was to call Dr. Martinez with any questions. Pain management was provided by Dr. Martinez with prescription. Wound management was again through Dr. Martinez's clinic and home health. She was to do no heavy lifting and to have only shower, no tub baths until she was seen by Dr. Martinez in followup. No new medications were added to her home medication regimen. Again , Dr. Martinez provided pain medication prescription on discharge. DIET AT DISCHARGE: Normal diet as tolerated. ACTIVITY: As tolerated with no heavy lifting, exercising. CONDITION AT DISCHARGE: Stable and improved. #[id number] [facility]
== END 2017-10-19 13:10 | disposition home health service (06) | DRG 583 ==
LOC: AMB 05:40 → MS 14:50
PROVIDERS: ADMIT Surgery; ATTEND Nurse Practitioner Family
PROC: 0HTU0ZZ Resection of Left Breast, Open Approach (ICD-10-PCS; principal; 2017-10-16 10:57)
DX: C50.912 Malignant neoplasm of unspecified site of left female breast (principal); R55 Syncope and collapse; J30.9 Allergic rhinitis, unspecified; F29 Unspecified psychosis not due to a substance or known physiological condition; M54.5 Low back pain; G47.00 Insomnia, unspecified; G89.29 Other chronic pain; Z79.51 Long term (current) use of inhaled steroids; Z92.21 Personal history of antineoplastic chemotherapy; Z17.0 Estrogen receptor positive status [ER+]; Z79.899 Other long term (current) drug therapy

== ENCOUNTER → 2018-09-13 | Outpatient (CLI) | payer MEDICARE, OTHER ==
--- NOTE | 2018-09-13 16:37 | US ---
US HEAD NECK SOFT TISSUE CLINICAL STATEMENT: THYROID NODULE. No palpable thyroid mass, no thyroid surgery or treatment. COMPARISON: None FINDINGS: Size right thyroid lobe: 4.6 x 1.5 x 1.5 cm Size left thyroid lobe: 4.1 x 1.3 x 1.2 cm Size isthmus: 0.1 cm Estimated total number of nodules greater than or equal to 1 cm: 0. Heterogeneous echoes. Not significantly vascular. No distinct cysts. Nodule 1: Size: 0.7 x 0.6 x 0.4 cm Location: Right Mid Composition: solid or almost completely solid: 2 points Echogenicity: hypoechoic: 2 points Shape: wider than tall: 0 points Margins: smooth: 0 points Echogenic foci: none: 0 points ACR Total Points: 4; ACR TI-RADS risk category: TR4 - moderately suspicious nodule. Nodule 2: Size: 0.7 x 0.3 x 0.4 cm Location: Left Mid Composition: solid or almost completely solid: 2 points Echogenicity: hypoechoic: 2 points Shape: wider than tall: 0 points Margins: smooth: 0 points Echogenic foci: none: 0 points ACR Total Points: 4; ACR TI-RADS risk category: TR4 - moderately suspicious nodule. No distinct solid mass or cyst in the surrounding soft tissues. No large calcifications or parenchymal edema. No overlying skin changes. Normal vascularity. IMPRESSION: 1. Nodule 1: ACR TI-RADS 2017 Category TR4. Recommend: No further follow-up. [facility] Best Practice recommendations are based upon ACR TI-RADS 2017 recommendations. Please see below.* 2. Nodule 2: ACR TI-RADS 2017 Category TR4. Recommend: No further follow-up. 3. Soft tissues around the thyroid gland are unremarkable. *ACR TI-RADS 2017 Recommendations: TR1: No FNA or follow up TR2: No FNA or follow up TR3: FNA if >/= 2.5 cm, follow up if 1.5 - 2.4 cm in 1, 3, and 5 years TR4: FNA if >/= 1.5 cm, follow up if 1.0 - 1.4 cm in 1, 2, 3, and 5 years TR5: FNA if >/= 1.0 cm, follow up if 0.5 - 0.9 cm every year for 5 years ACR TI-RADS recommends that no more than two nodules with the highest ACR TI-RADS total point should be biopsied and no more than four nodules should be followed. Electronically signed by: Tejinder Menjivar MD 09/13/2018 4:36 PM [facility]
== END ==
LOC: US 10:30
PROVIDERS: ATTEND Family Medicine
DX: E04.1 Nontoxic single thyroid nodule (principal)

== ENCOUNTER → 2018-11-20 | Outpatient (CLI) | payer MEDICARE, OTHER ==
--- NOTE | 2018-11-21 15:13 | MAM ---
EXAM DESCRIPTION: 3D Screening, Right : Digital Mammography. CLINICAL HISTORY: 68 years Female SCREENING . Left breast cancer march 2017 followed by mastectomy. Lifetime risk of developing breast cancer (Tyrer-Cuzick model)(%): Not Calculated due to personal history of breast cancer. No complaints about right breast. COMPARISON: Bilateral diagnostic 2-D digital mammography 03/09/2017. 2-D digital screening bilateral mammography 10/24/2016. TECHNIQUE: Right breast CC and MLO projection full-field images, digital tomosynthesis mammographic technique. Right breast digital 2-D full-field MLO images. CAD not available for tomosynthesis or 2-D images. FINDINGS: Right breast parenchymal density pattern is: Heterogeneously dense breast tissue, which may obscure small masses. No skin thickening or nipple retraction. Dense fibroglandular tissue in the posterior two thirds of the right breast upper outer quadrant with scattered microcalcifications. No new focal, stellate mass or density, focal asymmetry , and no suspicious microcalcifications right breast. Stable mammograms compared to prior study. Taking into account, differences in mammographic technique. IMPRESSION: Benign exam. BIRAD CATEGORY: 2 BENIGN FINDINGS. RECOMMENDATIONS: FOLLOW UP: Routine digital right breast mammographic screening, one year interval from November 2018 Written communication explaining the IMPRESSION and follow-up, will be mailed to the patient and referring health care provider. According to the [employer], yearly mammograms are recommended starting at age 40 and continuing as long as a woman is in good health. Any breast change noted on a breast self-exam should be reported promptly to the patient's healthcare provider. Breast MRI is recommended for women with an approximately 20-25% or greater lifetime risk of breast cancer, including women with a strong family history of breast or ovarian cancer and women who have been treated for Hodgkin's disease. A negative mammographic report should not delay tissue diagnosis in patients with significant clinical history or physical findings. Extremely dense breast tissue limits the sensitivity of digital mammography. Electronically signed by: Tjeinder Menjivar MD 11/21/2018 3:12 PM [employer]
== END ==
LOC: MAMMO 14:50
PROVIDERS: ATTEND Surgery
DX: Z12.31 Encounter for screening mammogram for malignant neoplasm of breast (principal)

== ENCOUNTER → 2018-12-11 | Outpatient (CLI) | payer MEDICARE, OTHER ==
--- NOTE | 2018-12-11 16:36 | MRI ---
EXAM DESCRIPTION: Lumbar Spine w/o Contrast : Magnetic Resonance Imaging. CLINICAL HISTORY: L1 COMPRESSION FRACTURE COMPARISON: Radiographs of the lumbar spine 12/06/2018. TECHNIQUE: Multiplanar, multiple standard sequences, non contrast MRI, lumbar spine. FINDINGS: Diffuse marrow edema like signal in the superior endplate and superior third of the L1 vertebral body. Marrow edema also extending into the bilateral pedicles. Marrow edema also along the anterior vertebral body with sparing of the marrow in the posterior two thirds and inferior half of the vertebral body. Retropulsion of the superior endplate almost 3 mm with the bone almost abutting the distal cord. Normal signal in the cord. Anteropulsion of the superior endplate with minimal soft tissue edema, the protruding bone is almost touching the posterior aorta. T12-L1: Minimal disc desiccation. No posterior bulging. Mild right foraminal narrowing with left foramen patent. Borderline canal stenosis with AP canal diameter 10 mm at the level of the retropulsion. L1-2: Minimal amount of disc desiccation with no posterior bulging. Disc space maintained. Posterior elements unremarkable. Canal and foramina are patent. L2-3: Minimal disc desiccation with disc space maintained. Minimal hypertrophy of the flavum ligaments. Facets are negative. Canal and foramina are patent. L3-4: Disc desiccation and minimal disc space loss. Disc bulges to the left of midline into the left foramen abutting the exiting left L3 nerve. Minimal narrowing of the right foramen by bulging disc. Flavum ligament hypertrophy. AP canal diameter 11 mm. L4-5: Minimal disc desiccation and posterior disc space narrowing. Disc bulge into the right foramen with mild narrowing. Left foramen patent. Bilateral flavum ligament hypertrophy minimal facet arthrosis. Mild canal narrowing. L5-S1: Disc desiccation and minimal disc space loss. Tiny posterior bulge. Flavum ligament hypertrophy and facet joint mild arthrosis/hypertrophy. Moderate canal narrowing. Bilateral foramina are patent. Bilateral Modic type II endplate reactive changes on the lateral disc margin. No significant scoliosis or spondylolisthesis. Paravertebral soft tissues bilateral paraspinal muscle atrophy.. Otherwise normal marrow signal in the remaining vertebral bodies and the posterior elements. Vertebral bodies are not compressed at any level. IMPRESSION: 1. Subacute 25-30% compression type vertebral body fracture L1 superiorly with anteropulsion and retropulsion. Borderline mild canal stenosis caused by retropulsed bone abutting the cord. Desiccation of the T12-L1 disc but no herniation and no neural foraminal stenosis. 2. Moderate spondylosis and moderate canal narrowing at L5-S1. Bilateral foramina are patent. 3. Moderate canal narrowing L3-4 minimal narrowing of the right foramen by bulging disc. Disc bulges into the left foramen abutting the exiting left L3 nerve. Correlate for left L3 radiculopathy. Electronically signed by: Tejinder Menjivar MD 12/11/2018 4:34 PM [facility]
== END ==
LOC: MRI 11:09
PROVIDERS: ATTEND Family Medicine
DX: S32.010A Wedge compression fracture of first lumbar vertebra, initial encounter for closed fracture (principal); M47.897 Other spondylosis, lumbosacral region; M51.86 Other intervertebral disc disorders, lumbar region

== ENCOUNTER → 2020-12-08 | Outpatient (CLI) | payer MEDICARE, OTHER ==
--- NOTE | 2020-12-09 19:16 | MAM ---
EXAM DESCRIPTION: 3D Screening BILATERAL : Digital Mammography. CLINICAL HISTORY: 70 years Female SCREENING . Personal history of left breast cancer in 2016 with mastectomy. Remote family history of ovarian cancer. Menarche age 15. Childbirth age 29. Menopause age 52. HRT less than 5 years ago.. Lifetime risk of developing breast cancer (Tyrer-Cuzick model)(%): Calculated due to personal history of breast cancer. COMPARISON: Right breast screening digital breast tomosynthesis November 2018 and March 2017 digital right breast 2-D imaging TECHNIQUE: Right breast CC and MLO projection full-field images, digital tomosynthesis mammographic technique. Right breast digital 2-D full-field MLO images. CAD available for 2-D images. FINDINGS: Right breast parenchymal density pattern is: Heterogeneously dense breast tissue, which may obscure small masses. Scattered solitary microcalcifications associated with the dense breast tissue. Focal asymmetry in dense tissue predominantly upper outer quadrant anterior third and middle third of the breast. No skin thickening or nipple retraction No new focal, stellate mass or density, focal asymmetry , and no suspicious microcalcifications right breast. Stable mammograms compared to prior study. IMPRESSION: Benign exam. BIRAD CATEGORY: 2 BENIGN FINDINGS. RECOMMENDATIONS: FOLLOW UP: Routine digital right breast mammographic screening, one year interval from December 2020. Written communication explaining the IMPRESSION and follow-up, will be mailed to the patient and referring health care provider. According to the [employer], yearly mammograms are recommended starting at age 40 and continuing as long as a woman is in good health. Any breast change noted on a breast self-exam should be reported promptly to the patient's healthcare provider. Breast MRI is recommended for women with an approximately 20-25% or greater lifetime risk of breast cancer, including women with a strong family history of breast or ovarian cancer and women who have been treated for Hodgkin's disease. A negative mammographic report should not delay tissue diagnosis in patients with significant clinical history or physical findings. Extremely dense breast tissue limits the sensitivity of digital mammography. Electronically signed by: Tejinder Menjivar MD 12/09/2020 7:15 PM [facility]
== END ==
LOC: MAMMO 13:29
PROVIDERS: ATTEND Family Medicine
DX: Z12.31 Encounter for screening mammogram for malignant neoplasm of breast (principal)